=== PATIENT | female | born 1975 | race Caucasian/White ===

== ENCOUNTER 2019-01-17 09:57 | Emergency (ER) | payer OTHER ==
[~2019-01-17] VITALS: Ht 162.6 cm; Wt 72.6 kg
[2019-01-17 10:32] LABS: URINE BILIRUBIN NEGATIVE (Negative); URINE BLOOD NEGATIVE (Negative); URINE CLARITY CLEAR; URINE COLOR YELLOW; URINE GLUCOSE-RANDOM* NEGATIVE (Negative); URINE KETONES NEGATIVE (Negative); URINE LEUKOCYTES-REFLEX NEGATIVE (Negative); URINE NITRITE-REFLEX NEGATIVE (Negative); URINE PROTEIN (DIPSTICK) NEGATIVE (Negative); URINE SPECIFIC GRAVITY 1.015 (1.005-1.035); URINE UROBILINOGEN 0.2 E.U./dl (0.2-1.0)
[2019-01-17 10:47] LABS: MCHC 32.8 g/dL (28.0-37.0)
[2019-01-17 10:49] LABS: HEMOGLOBIN 13.5 gm/dL (12.0-15.0); MCH 28.5 pg (26.0-34.0); MCV 86.7 fL (80.0-100.0); RBC 4.73 mil/uL (4.20-5.00); WBC 10.2 thou/uL (4.0-11.0)
[2019-01-17 11:12] VITALS: BP 122/76
[2019-01-17 11:27] LABS: ANION GAP 6 mmol/L (7-16); BUN 13 mg/dL (7-18); CALCIUM 9.5 mg/dL (8.5-10.1); CHLORIDE 108 mmol/L (98-107); CO2 28 mmol/L (21-32); CREATININE 0.9 mg/dL (0.6-1.0); GLUCOSE 94 mg/dL (74-106); POTASSIUM 3.9 mmol/L (3.5-5.1); SODIUM 142 mmol/L (136-145)
[2019-01-17 11:32] LABS: ALBUMIN 4.1 g/dL (3.4-5.0); SGOT 11 U/L (15-37); SGPT 18 U/L (30-65); TOTAL BILIRUBIN 0.7 mg/dL (<0.1-1.0); TOTAL PROTEIN 7.3 g/dL (6.4-8.2); TROPONIN-I <0.06 ng/mL (<0.06)
[2019-01-17] MEDS ORDERED: NAPROSYN500 MG PO (11:58)
--- NOTE | 2019-01-18 09:16 | EKG ---
[place] [address] [address] [facility] [place] [address] ELECTROCARDIOGRAM REPORT Name: CARMELA MCGOVERN Room #: DEP GARIMA Leo#: [id number] ������������������ Admission: 01/17/19 ������������������ Attend Phys: Discharge: 01/17/19 ������������������ Date of : 77 Report #: [id number] ����������������������������������������������������������������� [id number] THIS REPORT FOR: //name// [facility] ED Test Date: 2019-01-17 Test Time: 10:30:12 Pat Name: CARMELA MCGOVERN Department: Room: Gender: F Supplies Packer: ELISSARobert : 1975 Requested By: Laure Smith Order Number: [id number] MD: Jose Eduardo Vital Measurements Intervals [place] Rate: 68 P: 80 TN: 159 QRS: 56 QRSD: 96 T: 50 QT: 392 QTc: 417 Interpretive Statements Sinus rhythm Normal tracing No previous ECG available for comparison Electronically Signed On 01-18-2019 9:15:48 CDT by Jose Eduardo Vital [email or web address] ��������������������������������������������� <ELECTRONICALLY SIGNED> ���������������������������������������� By: Jose Eduardo Vital MD, [facility] ��������������������������������������������� 01/18/19 0915 1030 1030 Jose Eduardo Vital MD, FACC /EPI
== END 2019-01-17 12:22 | disposition home or self-care (01) ==
LOC: ER 09:57
PROVIDERS: Physician Assistant
DX: R07.89 Other chest pain (principal); R42 Dizziness and giddiness